=== PATIENT | female | born 1950 ===

== ENCOUNTER → 2017-12-01 10:39 | Outpatient (CLI) | payer OTHER | END | disposition home or self-care (01) | LOC: LAB 10:39 | DX: R79.89 Other specified abnormal findings of blood chemistry (principal); Z51.81 Encounter for therapeutic drug level monitoring ==

== ENCOUNTER 2017-12-02 07:46 | Outpatient (CLI) | payer OTHER | END 2017-12-02 13:56 | disposition home or self-care (01) | LOC: MRI 07:46 | DX: D69.49 Other primary thrombocytopenia (principal); K59.09 Other constipation; R74.0 Nonspecific elevation of levels of transaminase and lactic acid dehydrogenase [LDH] | CPT/HCPCS: 72197; 74183 ==